=== PATIENT | male | born 1985 | race Caucasian/White ===

== ENCOUNTER 2017-06-30 08:51 | Emergency (ER) | payer OTHER ==
[2017-06-30 08:57] VITALS: BP 158/84; PULSE 65; RESP 18; TEMP 98.8
--- NOTE | 2017-06-30 10:25 | ED ---
Head Injury HPI - General Chief complaint: Head Injury Stated complaint: Head injury Time Seen by Provider: 06/30/17 09:33 Source: patient, RN notes reviewed Mode of arrival: ambulatory Limitations: no limitations - History of Present Illness Initial comments: 31-year-old male presents emergency Department chief complaint of left-sided head injury. 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 Patient states he doesn't headache feel slightly dazed. Denies any nausea vomiting diarrhea constipation. Denies any neck pain no focal weakness. He denies any blurred vision at this time. He states he does feel slightly off. Patient states that there is a large area swelling no laceration. - Related Data Allergies/Adverse reactions: Allergies Allergy/AdvReac Type Severity Reaction Status Date / Time sulfamethoxazole Allergy Swelling Verified 06/30/17 08:57 [From Bactrim] trimethoprim [From Bactrim] Allergy Swelling Verified 06/30/17 08:57 amoxicillin AdvReac Nausea & Verified 06/30/17 08:57 Vomiting Review of Systems ROS Statement: Those systems with pertinent positive or pertinent negative responses have been documented in the HPI. ROS Other: All systems not noted in ROS Statement are negative. Past Medical History Past Medical History: No Reported History Additional Past Medical History / Comment(s): stomach ulcers History of Any Multi-Drug Resistant Organisms: None Reported Past Surgical History: No Surgical Hx Reported Past Psychological History: No Psychological Hx Reported Smoking Status: Never smoker Past Alcohol Use History: Rare Past Drug Use History: None Reported General Exam Limitations: no limitations General appearance: alert, in no apparent distress Head exam: Present: atraumatic, normocephalic. Absent: normal inspection ( Hematoma noted over the left side of the forehead, left temporal region) Eye exam: Present: normal appearance, PERRL, EOMI. Absent: scleral icterus, conjunctival injection, periorbital swelling ENT exam: Present: normal exam, mucous membranes moist Neck exam: Present: normal inspection, full ROM. Absent: tenderness, meningismus, lymphadenopathy Respiratory exam: Present: normal lung sounds bilaterally. Absent: respiratory distress, wheezes, rales, rhonchi, stridor Cardiovascular Exam: Present: regular rate, normal rhythm, normal heart sounds. Absent: systolic murmur, diastolic murmur, rubs, gallop, clicks Neurological exam: Present: alert, oriented X3, CN II-XII intact, reflexes normal, other ([id number] intact bilaterally without shooting). Absent: motor sensory deficit Skin exam: Present: warm, dry, intact, normal color. Absent: rash Course Vital Signs 06/30/17 08:53 Temperature 98.8 F Pulse Rate 65 Respiratory 18 Rate Blood Pressure 158/84 O2 Sat by Pulse 96 Oximetry Medical Decision Making - Medical Decision Making 31-year-old male present emergency department with chief complaint of head injury. There is no acute fracture. Patient is a hematoma noted. Patient be given instructions for concussion return parameters. Disposition Clinical Impression: Scalp hematoma, Head injury Disposition: HOME SELF-CARE Condition: Stable Instructions: Concussion (ED), Head Injury (ED) Additional Instructions: Please return to the Emergency Department if symptoms worsen or any other concerns. Referrals: None,Stated [Primary Care Provider] - 1-2 days Time of Disposition: 10:43
--- NOTE | 2017-06-30 10:36 | CT ---
EXAMINATION TYPE: CT brain wo con DATE OF EXAM: 06/30/2017 COMPARISON: NONE INDICATION: Hit with a hockey stick left side of head DLP: 943 mGycm, Automated exposure control for dose reduction was used. CONTRAST: None CT of the brain is performed utilizing 3 mm thick sections through the posterior fossa and 3 mm thick sections through the remaining calvarium. Study is performed within 24 hours of arrival to the hosp [facility]. No abnormal hyperdensity is present to suggest an acute intracranial hemorrhage. No mass lesion is evident. No acute infarcts are evident. Ventricles and sulci are appropriate for the patient age. Paranasal sinuses and mastoid air cells within the [id number] are clear. There are some minimal soft tissue swelling over the left frontal temporal region. No underlying frac ture is evident. IMPRESSIONS: 1. No abnormal intracranial findings. 2. Minimal soft tissue swelling over the left frontal temporal region. No underlying fractures eviden t.
== END 2017-06-30 11:14 | disposition home or self-care (01) ==
LOC: EC 08:51
DX: S00.03XA Contusion of scalp, initial encounter (principal); Z88.0 Allergy status to penicillin; Z88.1 Allergy status to other antibiotic agents; Z88.2 Allergy status to sulfonamides; W21.211A Struck by field hockey stick, initial encounter; Y92.69 Other specified industrial and construction area as the place of occurrence of the external cause; Y99.0 Civilian activity done for income or pay
CPT/HCPCS: 70450; 99283